=== PATIENT | female | born 1970 | race Two or more races ===

== ENCOUNTER → 2017-01-24 | Emergency (ER) | payer MEDICAID | END | disposition left against medical advice (07) | LOC: ER 23:28 | DX: R10.9 Unspecified abdominal pain (principal); Z53.21 Procedure and treatment not carried out due to patient leaving prior to being seen by health care provider ==

== ENCOUNTER 2018-08-24 02:06 | Emergency (ER) | payer MEDICAID ==
[~2018-08-24] VITALS: Ht 162.6 cm; Wt 56.7 kg
[2018-08-24 03:02] LABS: Basophils # (auto) 0.1 uL; Basophils % (auto) 0.5 % (0.0-2.0); Eosinophils # (auto) 0.2 uL; Eosinophils % (auto) 1.9 % (0.0-7.0); Hematocrit 34.7 % (36.0-46.0); Hemoglobin 11.5 g/dL (12.2-16.2); Lymphocytes # (auto) 2.5 uL; Lymphocytes % (auto) 26.7 % (10.0-50.0); Mean Corpuscular Hemoglobin 27.5 pg (28.0-32.0); Mean Corpuscular Hgb Conc. 33.2 g/dL (32.0-36.0); Monocytes # (auto) 0.5 uL; Monocytes % (auto) 5.5 % (0.0-12.0); Neutrophils # (auto) 6.2 uL; Neutrophils % (auto) 65.4 % (37.0-80.0); Platelet Count (auto) 388 10^3/uL (140-450); Red Blood Cells 4.18 10^6/uL (4.0-5.20); Red Cell Distribution Width 14.2 % (11.8-14.3); White Blood Cell 9.5 10^3/uL (4.4-10.8)
[2018-08-24 03:18] LABS: Albumin 3.3 g/dL (3.4-5.0); Calcium 8.6 mg/dL (8.5-10.1); Potassium 4.2 mmol/L (3.5-5.1)
[2018-08-24 03:27] LABS: Bilirubin, Total 0.3 mg/dL (0.2-1.0); Total Protein 7.5 g/dL (6.4-8.2)
[2018-08-24] MEDS ORDERED: HYDROcodone-ACET 5/325MG TAB PO ONE (05:00)
[2018-08-24] MEDS ORDERED: HYDROcodone-ACET 5/325MG TAB ONE (05:11)
[2018-08-24] MEDS ORDERED: SODIUM CHLORIDE 0.9% 1,000 ML IV ONE (06:15)
[2018-08-24] MEDS ORDERED: cefTRIAXone 1GM/50ML D5W 50 ML IV ONE (06:15)
[2018-08-24 07:35] VITALS: BP 121/66
== END 2018-08-24 07:51 | disposition home or self-care (01) ==
LOC: ER 02:11
DX: L60.0 Ingrowing nail (principal); E11.65 Type 2 diabetes mellitus with hyperglycemia; R42 Dizziness and giddiness; Z88.6 Allergy status to analgesic agent
CPT/HCPCS: 36415; 73660; 80053; 82010; 85025; 96365; 99284; J0696; J7030

== ENCOUNTER 2022-11-18 11:55 | Inpatient (IN) | payer MEDICAID ==
[~2022-11-18] VITALS: Ht 162.6 cm; Wt 77.4 kg
[2022-11-18] MEDS ORDERED: KETOROLAC TROMETH 60MG/2ML VIAL IM ONE (14:15)
[2022-11-18 15:10] LABS: Basophils # (auto) 0.1 10 ^3/uL (0-0.2); Monocytes # (auto) 0.9 10 ^3/uL (0-1.3)
[2022-11-18 15:13] LABS: Basophils % (auto) 0.7 % (0.0-2.0); Eosinophils # (auto) 0.2 10 ^3/uL (0-0.8); Eosinophils % (auto) 1.2 % (0.0-7.0); Hematocrit 17.9 % (36.0-46.0); Lymphocytes # (auto) 1.7 10 ^3/uL (0.4-5.4); Lymphocytes % (auto) 13.3 % (10.0-50.0); Mean Corpuscular Hemoglobin 22.7 pg (28.0-32.0); Mean Corpuscular Hgb Conc. 31.4 g/dL (32.0-36.0); Mean Corpuscular Volume 72.3 fL (80.0-100.0); Monocytes % (auto) 6.9 % (0.0-12.0); Neutrophils # (auto) 10.2 10 ^3/uL (1.6-8.6); Neutrophils % (auto) 77.9 % (37.0-80.0); Red Blood Cells 2.48 10^6/uL (4.0-5.20); Red Cell Distribution Width 16.2 % (11.8-14.3); White Blood Cell 13.1 10^3/uL (4.4-10.8)
[2022-11-18 15:29] LABS: Calcium 8.5 mg/dL (8.5-10.1); Potassium 4.1 mmol/L (3.5-5.1)
[2022-11-18 15:30] LABS: Hemoglobin 5.6 g/dL (12.2-16.2)
[2022-11-18 15:32] LABS: Albumin 2.8 g/dL (3.4-5.0); BUN/Creatinine Ratio 20.7
[2022-11-18 15:35] LABS: Bilirubin, Total 0.4 mg/dL (0.2-1.0)
[2022-11-18 16:39] LABS: INR 0.97 (0.9-1.15)
[2022-11-18 16:43] LABS: Basophils # (auto) 0.1 10 ^3/uL (0-0.2); Basophils % (auto) 0.9 % (0.0-2.0); Eosinophils # (auto) 0.2 10 ^3/uL (0-0.8); Neutrophils # (auto) 9.4 10 ^3/uL (1.6-8.6); Neutrophils % (auto) 74.8 % (37.0-80.0)
[2022-11-18 16:47] LABS: Eosinophils % (auto) 1.2 % (0.0-7.0); Hematocrit 17.5 % (36.0-46.0); Lymphocytes # (auto) 1.8 10 ^3/uL (0.4-5.4); Lymphocytes % (auto) 14.4 % (10.0-50.0); Mean Corpuscular Hgb Conc. 31.8 g/dL (32.0-36.0); Mean Corpuscular Volume 72.3 fL (80.0-100.0); Monocytes # (auto) 1.1 10 ^3/uL (0-1.3); Monocytes % (auto) 8.7 % (0.0-12.0); Red Blood Cells 2.42 10^6/uL (4.0-5.20); Red Cell Distribution Width 16.2 % (11.8-14.3); White Blood Cell 12.5 10^3/uL (4.4-10.8)
[2022-11-18 16:59] LABS: Hemoglobin 5.6 g/dL (12.2-16.2)
[2022-11-18 17:00] LABS: % Iron Saturation 2.4 % (15-50)
[2022-11-18] MEDS ORDERED: DEXTROSE (50%) 50ML SYRG IV PRN (17:30)
[2022-11-18] MEDS ORDERED: PANTOPRAZOLE 40 MG/10 ML VIAL INJ IV ONE (17:45)
[2022-11-18] MEDS ORDERED: CLINDAMYCIN 600MG IV 50 ML IV ONE (17:45)
[2022-11-18] MEDS: CLINDAMYCIN 600MG IV 50 ML IV SCH (17:58)
[2022-11-18 18:25] LABS: Folate (Folic Acid) 23.45 ng/mL (5.38-24)
[2022-11-19] VITALS (15 sets, daily range): BP systolic 99–175; BP diastolic 68–96
[2022-11-19] MEDS: ASCORBIC ACID 500 MG TAB PO SCH ×3 (01:17→22:52)
[2022-11-19] MEDS: SODIUM CHLORIDE 0.9% 1,000 ML IV SCH ×5 (01:20→18:02)
[2022-11-19] MEDS: InsuLIN REG 1unit/0.01ml Soln (100units/ml) SC SCH ×5 (01:39→22:52)
[2022-11-19] MEDS: ACCU-CHEK COMFORT CURVE STRIP VI SCH ×5 (01:40→22:00)
[2022-11-19] MEDS: CLINDAMYCIN 600MG IV 50 ML IV SCH ×2 (01:58→10:26)
[2022-11-19] MEDS: ACETAMINOPHEN 325 MG TAB PO PRN ×2 (06:25→08:27)
[2022-11-19] MEDS ORDERED: ENOXAPARIN SOD 40 MG/0.4 ML SYRINGE SC SCH (10:00)
[2022-11-19] MEDS: ZINC SULFATE 220mg CAP or TAB PO SCH (10:26)
[2022-11-19] MEDS: PANTOPRAZOLE 40 MG/10 ML VIAL INJ IV SCH (10:26)
[2022-11-19] MEDS: MULTIPLE VITAMIN TAB PO SCH (10:26)
[2022-11-19] MEDS ORDERED: VANCOMYCIN PER PHARMACY 0 MG IV SCH (11:30)
[2022-11-19] MEDS ORDERED: cefTRIAXone 1GM/50ML D5W 50 ML IV ONE (11:30)
[2022-11-19] MEDS ORDERED: VANCOMYCIN 1GM/250ML 250 ML IV ONE (11:30)
[2022-11-19 12:09] LABS: Basophils # (auto) 0.1 10 ^3/uL (0-0.2); Basophils % (auto) 0.9 % (0.0-2.0); Eosinophils # (auto) 0.2 10 ^3/uL (0-0.8); Nucleated Red Blood Cells % 0.1 %; White Blood Cell 10.6 10^3/uL (4.4-10.8)
[2022-11-19 12:11] LABS: Eosinophils % (auto) 2.3 % (0.0-7.0); Mean Corpuscular Hemoglobin 24.5 pg (28.0-32.0); Mean Corpuscular Volume 74.1 fL (80.0-100.0); Monocytes # (auto) 0.9 10 ^3/uL (0-1.3); Monocytes % (auto) 8.6 % (0.0-12.0); Neutrophils # (auto) 7.3 10 ^3/uL (1.6-8.6); Neutrophils % (auto) 69.2 % (37.0-80.0); Red Blood Cells 2.57 10^6/uL (4.0-5.20); Red Cell Distribution Width 16.9 % (11.8-14.3)
[2022-11-19 12:28] LABS: Albumin 2.3 g/dL (3.4-5.0); Calcium 7.8 mg/dL (8.5-10.1); Potassium 4.5 mmol/L (3.5-5.1)
[2022-11-19 12:31] LABS: BUN/Creatinine Ratio 27.2; Bilirubin, Total 0.4 mg/dL (0.2-1.0); Total Protein 6.3 g/dL (6.4-8.2)
[2022-11-19 12:35] LABS: Hemoglobin 6.3 g/dL (12.2-16.2)
[2022-11-19 19:10] LABS: Urine Bacteria NONE SEEN /hpf (None Seen); Urine Blood Negative /uL (Negative); Urine Specific Gravity 1.008 (1.001-1.035); Urine WBC 9 /hpf (0 - 5)
[2022-11-19 19:30] LABS: Protein, Urine 178.5 mg/dL (0.0-11.9)
[2022-11-19] MEDS: hydrALAZINE HCL 20 MG/ML VL IV PRN (23:30)
[2022-11-20] VITALS (7 sets, daily range): BP systolic 127–187; BP diastolic 68–103
[2022-11-20] MEDS: ACETAMINOPHEN 325 MG TAB PO PRN ×3 (05:28→22:24)
[2022-11-20] MEDS: hydrALAZINE HCL 20 MG/ML VL IV PRN ×2 (05:29→17:07)
[2022-11-20] MEDS: InsuLIN REG 1unit/0.01ml Soln (100units/ml) SC SCH ×4 (06:45→22:33)
[2022-11-20] MEDS: ACCU-CHEK COMFORT CURVE STRIP VI SCH ×4 (06:45→22:16)
[2022-11-20 07:58] LABS: Eosinophils # (auto) 0.1 10 ^3/uL (0-0.8); Hemoglobin 8.4 g/dL (12.2-16.2)
[2022-11-20 08:00] LABS: Basophils # (auto) 0.2 10 ^3/uL (0-0.2); Basophils % (auto) 1.4 % (0.0-2.0); Hematocrit 25.7 % (36.0-46.0); Lymphocytes # (auto) 1.6 10 ^3/uL (0.4-5.4); Lymphocytes % (auto) 10.9 % (10.0-50.0); Mean Corpuscular Hemoglobin 24.6 pg (28.0-32.0); Mean Corpuscular Hgb Conc. 32.5 g/dL (32.0-36.0); Mean Corpuscular Volume 75.6 fL (80.0-100.0); Monocytes # (auto) 0.9 10 ^3/uL (0-1.3); Monocytes % (auto) 6.3 % (0.0-12.0); Neutrophils # (auto) 11.6 10 ^3/uL (1.6-8.6); Neutrophils % (auto) 80.4 % (37.0-80.0); Nucleated Red Blood Cells % 0.2 %; Red Blood Cells 3.41 10^6/uL (4.0-5.20); Red Cell Distribution Width 17.7 % (11.8-14.3); White Blood Cell 14.4 10^3/uL (4.4-10.8)
[2022-11-20 08:18] LABS: Albumin 2.6 g/dL (3.4-5.0); Calcium 8.1 mg/dL (8.5-10.1); Magnesium 2.3 mg/dL (1.6-2.6); Potassium 4.7 mmol/L (3.5-5.1)
[2022-11-20 08:20] LABS: Bilirubin, Total 0.6 mg/dL (0.2-1.0); Total Protein 6.8 g/dL (6.4-8.2)
[2022-11-20] MEDS: VANCOMYCIN 750mg/250ml 250 ML IV SCH (08:45)
[2022-11-20] MEDS: cefTRIAXone 1GM/50ML D5W 50 ML IV SCH (08:46)
[2022-11-20] MEDS: PANTOPRAZOLE 40 MG/10 ML VIAL INJ IV SCH (11:07)
[2022-11-20] MEDS: ZINC SULFATE 220mg CAP or TAB PO SCH (11:07)
[2022-11-20] MEDS: ASCORBIC ACID 500 MG TAB PO SCH ×2 (11:08→22:14)
[2022-11-20] MEDS: MULTIPLE VITAMIN TAB PO SCH (11:20)
[2022-11-20] MEDS ORDERED: SODIUM FERR GLUC 62.5MG/5ML 125 MG in SODIUM CHL 0.9% 100 ML IV ONE (20:15)
[2022-11-20] MEDS: MUPIROCIN 2% OINT 15gm or 22gm FOR MRSA NARES EACHNOSTRI SCH (22:14)
[2022-11-20] MEDS: SODIUM CHLORIDE 0.9% 1,000 ML IV SCH (22:50)
[2022-11-21] MEDS: VANCOMYCIN 750mg/250ml 250 ML IV SCH ×2 (03:09→22:53)
[2022-11-21 05:00] VITALS: BP 147/85
[2022-11-21] MEDS: ACCU-CHEK COMFORT CURVE STRIP VI SCH ×4 (05:49→22:16)
[2022-11-21] MEDS: InsuLIN REG 1unit/0.01ml Soln (100units/ml) SC SCH ×4 (05:52→22:17)
[2022-11-21 06:25] LABS: Basophils # (auto) 0.1 10 ^3/uL (0-0.2); Basophils % (auto) 0.5 % (0.0-2.0); Eosinophils # (auto) 0.3 10 ^3/uL (0-0.8); Eosinophils % (auto) 2.5 % (0.0-7.0); Hematocrit 22.8 % (36.0-46.0); Hemoglobin 7.7 g/dL (12.2-16.2); Lymphocytes # (auto) 1.6 10 ^3/uL (0.4-5.4); Lymphocytes % (auto) 13.6 % (10.0-50.0); Mean Corpuscular Hemoglobin 25.4 pg (28.0-32.0); Mean Corpuscular Hgb Conc. 33.6 g/dL (32.0-36.0); Mean Corpuscular Volume 75.7 fL (80.0-100.0); Monocytes # (auto) 1.3 10 ^3/uL (0-1.3); Monocytes % (auto) 10.6 % (0.0-12.0); Neutrophils # (auto) 8.6 10 ^3/uL (1.6-8.6); Neutrophils % (auto) 72.8 % (37.0-80.0); Red Blood Cells 3.02 10^6/uL (4.0-5.20); White Blood Cell 11.8 10^3/uL (4.4-10.8)
[2022-11-21 06:33] LABS: BUN/Creatinine Ratio 24.5; Calcium 8.2 mg/dL (8.5-10.1); Magnesium 2.2 mg/dL (1.6-2.6); Potassium 4.8 mmol/L (3.5-5.1)
[2022-11-21 08:00] VITALS: BP 136/77
[2022-11-21 09:00] VITALS: BP_SYST 136; BP_SYST 92; BP_DIAS 57; BP_DIAS 77
[2022-11-21] MEDS: ZINC SULFATE 220mg CAP or TAB PO SCH (10:08)
[2022-11-21] MEDS: ACETAMINOPHEN 325 MG TAB PO PRN ×2 (10:08→23:05)
[2022-11-21] MEDS: cefTRIAXone 1GM/50ML D5W 50 ML IV SCH (10:09)
[2022-11-21] MEDS: MUPIROCIN 2% OINT 15gm or 22gm FOR MRSA NARES EACHNOSTRI SCH ×2 (10:09→22:15)
[2022-11-21] MEDS: MULTIPLE VITAMIN TAB PO SCH (10:09)
[2022-11-21] MEDS: ASCORBIC ACID 500 MG TAB PO SCH ×2 (10:09→22:16)
[2022-11-21] MEDS: PANTOPRAZOLE 40 MG/10 ML VIAL INJ IV SCH (10:18)
[2022-11-21] MEDS ORDERED: SODIUM FERR GLUC 62.5MG/5ML 125 MG in SODIUM CHL 0.9% 100 ML IV ONE (12:00)
[2022-11-21 13:00] VITALS: BP 157/82
[2022-11-21] MEDS: PIPERACILLIN-TAZOB 3.375GM 100 ML IV SCH ×2 (13:26→18:56)
[2022-11-21] MEDS: ENALAPRIL MALEATE 2.5 MG TAB PO SCH (16:18)
[2022-11-21 17:00] VITALS: BP 154/67
[2022-11-21 22:00] VITALS: BP 182/89
[2022-11-22] MEDS: PIPERACILLIN-TAZOB 3.375GM 100 ML IV SCH ×4 (00:02→18:42)
[2022-11-22 05:00] VITALS: BP 117/72
[2022-11-22 06:03] LABS: Hemoglobin 7.4 g/dL (12.2-16.2); White Blood Cell 9.9 10^3/uL (4.4-10.8)
[2022-11-22 06:07] LABS: Basophils # (auto) 0.1 10 ^3/uL (0-0.2); Basophils % (auto) 0.8 % (0.0-2.0); Eosinophils # (auto) 0.3 10 ^3/uL (0-0.8); Eosinophils % (auto) 3.2 % (0.0-7.0); Hematocrit 22.2 % (36.0-46.0); Lymphocytes # (auto) 1.1 10 ^3/uL (0.4-5.4); Lymphocytes % (auto) 11.5 % (10.0-50.0); Mean Corpuscular Hemoglobin 25.4 pg (28.0-32.0); Mean Corpuscular Hgb Conc. 33.3 g/dL (32.0-36.0); Mean Corpuscular Volume 76.1 fL (80.0-100.0); Monocytes % (auto) 9.8 % (0.0-12.0); Neutrophils # (auto) 7.4 10 ^3/uL (1.6-8.6); Neutrophils % (auto) 74.7 % (37.0-80.0); Red Blood Cells 2.92 10^6/uL (4.0-5.20); Red Cell Distribution Width 17.8 % (11.8-14.3)
[2022-11-22 06:21] LABS: Potassium 4.4 mmol/L (3.5-5.1)
[2022-11-22 06:27] LABS: Albumin 2.1 g/dL (3.4-5.0); BUN/Creatinine Ratio 25.2; Bilirubin, Total 0.2 mg/dL (0.2-1.0); Calcium 7.8 mg/dL (8.5-10.1); Magnesium 2.2 mg/dL (1.6-2.6); Total Protein 6.6 g/dL (6.4-8.2)
[2022-11-22] MEDS: LEVOTHYROXINE SODIUM 50 MCG TAB PO SCH (06:33)
[2022-11-22] MEDS: ACCU-CHEK COMFORT CURVE STRIP VI SCH ×4 (06:34→22:31)
[2022-11-22] MEDS: InsuLIN REG 1unit/0.01ml Soln (100units/ml) SC SCH ×4 (06:34→22:31)
[2022-11-22 08:00] VITALS: BP 141/73
[2022-11-22 09:00] VITALS: BP 141/73
[2022-11-22] MEDS: PANTOPRAZOLE 40 MG/10 ML VIAL INJ IV SCH (09:42)
[2022-11-22] MEDS: ACETAMINOPHEN 325 MG TAB PO PRN ×2 (09:42→20:36)
[2022-11-22] MEDS: ASCORBIC ACID 500 MG TAB PO SCH ×2 (09:43→22:32)
[2022-11-22] MEDS: ZINC SULFATE 220mg CAP or TAB PO SCH (09:43)
[2022-11-22] MEDS: MULTIPLE VITAMIN TAB PO SCH (09:43)
[2022-11-22] MEDS: ENALAPRIL MALEATE 2.5 MG TAB PO SCH (09:43)
[2022-11-22] MEDS: MUPIROCIN 2% OINT 15gm or 22gm FOR MRSA NARES EACHNOSTRI SCH ×2 (09:44→22:32)
[2022-11-22 13:00] VITALS: BP 156/83
[2022-11-22] MEDS: hydrALAZINE HCL 20 MG/ML VL IV PRN (13:28)
[2022-11-22] MEDS: VANCOMYCIN 750mg/250ml 250 ML IV SCH (15:11)
[2022-11-22 16:55] VITALS: BP 153/76
[2022-11-22 22:00] VITALS: BP 159/80
[2022-11-23] MEDS: PIPERACILLIN-TAZOB 3.375GM 100 ML IV SCH ×2 (00:51→06:10)
[2022-11-23 05:00] VITALS: BP 155/71
[2022-11-23] MEDS: hydrALAZINE HCL 20 MG/ML VL IV PRN ×2 (06:10→21:44)
[2022-11-23] MEDS: ACETAMINOPHEN 325 MG TAB PO PRN ×2 (06:11→18:30)
[2022-11-23 06:44] LABS: BUN/Creatinine Ratio 22.4; Calcium 8.2 mg/dL (8.5-10.1)
[2022-11-23] MEDS: ACCU-CHEK COMFORT CURVE STRIP VI SCH ×4 (06:47→21:42)
[2022-11-23] MEDS: LEVOTHYROXINE SODIUM 50 MCG TAB PO SCH (06:47)
[2022-11-23] MEDS: InsuLIN REG 1unit/0.01ml Soln (100units/ml) SC SCH ×4 (06:48→21:42)
[2022-11-23 06:50] LABS: Basophils # (auto) 0.1 10 ^3/uL (0-0.2); Red Blood Cells 3.04 10^6/uL (4.0-5.20)
[2022-11-23 06:53] LABS: Basophils % (auto) 1.3 % (0.0-2.0); Eosinophils # (auto) 0.4 10 ^3/uL (0-0.8); Eosinophils % (auto) 4.1 % (0.0-7.0); Hematocrit 23.2 % (36.0-46.0); Hemoglobin 7.7 g/dL (12.2-16.2); Lymphocytes # (auto) 1.6 10 ^3/uL (0.4-5.4); Lymphocytes % (auto) 17.9 % (10.0-50.0); Mean Corpuscular Hemoglobin 25.3 pg (28.0-32.0); Mean Corpuscular Hgb Conc. 33.1 g/dL (32.0-36.0); Mean Corpuscular Volume 76.4 fL (80.0-100.0); Monocytes # (auto) 0.7 10 ^3/uL (0-1.3); Monocytes % (auto) 7.5 % (0.0-12.0); Neutrophils # (auto) 6.2 10 ^3/uL (1.6-8.6); Neutrophils % (auto) 69.2 % (37.0-80.0); Red Cell Distribution Width 18.1 % (11.8-14.3)
[2022-11-23 09:00] VITALS: BP 106/62
[2022-11-23] MEDS: VANCOMYCIN 750mg/250ml 250 ML IV SCH (09:00)
[2022-11-23] MEDS: ENALAPRIL MALEATE 2.5 MG TAB PO SCH (10:00)
[2022-11-23] MEDS: PANTOPRAZOLE 40 MG/10 ML VIAL INJ IV SCH (10:28)
[2022-11-23] MEDS: ZINC SULFATE 220mg CAP or TAB PO SCH (10:28)
[2022-11-23] MEDS: ASCORBIC ACID 500 MG TAB PO SCH ×2 (10:28→21:42)
[2022-11-23] MEDS: MUPIROCIN 2% OINT 15gm or 22gm FOR MRSA NARES EACHNOSTRI SCH ×2 (10:28→21:41)
[2022-11-23] MEDS: MULTIPLE VITAMIN TAB PO SCH (10:28)
[2022-11-23] MEDS: diphenhdrAMINE HCL 25 MG CAP PO PRN ×2 (10:38→21:44)
[2022-11-23 13:00] VITALS: BP 143/67
[2022-11-23] MEDS ORDERED: VANCOMYCIN 750mg/250ml 250 ML IV SCH (13:00)
[2022-11-23] MEDS: SODIUM CHLORIDE 0.9% 1,000 ML IV SCH ×2 (14:00→21:41)
[2022-11-23] MEDS ORDERED: PIPERACILLIN-TAZOB 3.375GM 100 ML IV SCH (14:00)
[2022-11-23 16:42] VITALS: BP 147/84
[2022-11-23 20:00] VITALS: BP 175/84
[2022-11-23] MEDS: MEROPENEM 1GM IVPB 100 ML IV SCH (21:42)
[2022-11-23 22:00] VITALS: BP 175/84
[2022-11-24 05:00] VITALS: BP 147/89
[2022-11-24 06:41] LABS: Basophils # (auto) 0.1 10 ^3/uL (0-0.2); Basophils % (auto) 0.9 % (0.0-2.0); Eosinophils # (auto) 0.3 10 ^3/uL (0-0.8); Lymphocytes # (auto) 1.5 10 ^3/uL (0.4-5.4); Mean Corpuscular Volume 76.6 fL (80.0-100.0); Monocytes # (auto) 0.6 10 ^3/uL (0-1.3); Neutrophils % (auto) 69.5 % (37.0-80.0)
[2022-11-24 06:44] LABS: Eosinophils % (auto) 3.5 % (0.0-7.0); Hematocrit 22.2 % (36.0-46.0); Hemoglobin 7.3 g/dL (12.2-16.2); Lymphocytes % (auto) 18.5 % (10.0-50.0); Mean Corpuscular Hemoglobin 25.3 pg (28.0-32.0); Monocytes % (auto) 7.6 % (0.0-12.0); Neutrophils # (auto) 5.6 10 ^3/uL (1.6-8.6); Nucleated Red Blood Cells % 0.1 %; White Blood Cell 8.1 10^3/uL (4.4-10.8)
[2022-11-24] MEDS: SODIUM CHLORIDE 0.9% 1,000 ML IV SCH ×4 (06:45→12:24)
[2022-11-24] MEDS: ACCU-CHEK COMFORT CURVE STRIP VI SCH ×4 (06:45→22:58)
[2022-11-24] MEDS: LEVOTHYROXINE SODIUM 50 MCG TAB PO SCH (06:45)
[2022-11-24] MEDS: InsuLIN REG 1unit/0.01ml Soln (100units/ml) SC SCH ×4 (06:46→23:00)
[2022-11-24] MEDS: ACETAMINOPHEN 325 MG TAB PO PRN ×2 (06:49→23:03)
[2022-11-24 06:58] LABS: BUN/Creatinine Ratio 26.1; Calcium 7.9 mg/dL (8.5-10.1); Magnesium 2.3 mg/dL (1.6-2.6)
[2022-11-24 08:00] VITALS: BP 141/72
[2022-11-24] MEDS: ASCORBIC ACID 500 MG TAB PO SCH ×2 (11:26→22:58)
[2022-11-24] MEDS: MULTIPLE VITAMIN TAB PO SCH (11:26)
[2022-11-24] MEDS: ZINC SULFATE 220mg CAP or TAB PO SCH (11:26)
[2022-11-24] MEDS: PANTOPRAZOLE 40 MG/10 ML VIAL INJ IV SCH (11:27)
[2022-11-24] MEDS: MUPIROCIN 2% OINT 15gm or 22gm FOR MRSA NARES EACHNOSTRI SCH ×2 (11:28→22:58)
[2022-11-24] MEDS: MEROPENEM 1GM IVPB 100 ML IV SCH ×2 (11:28→23:06)
[2022-11-24] MEDS: hydrALAZINE HCL 20 MG/ML VL IV PRN (11:40)
[2022-11-24 12:00] VITALS: BP 162/80
[2022-11-24 16:00] VITALS: BP 150/73
[2022-11-24] MEDS: VANCOMYCIN 500 MG in D5W 5% 100 ML IV SCH (18:49)
[2022-11-24 22:00] VITALS: BP 174/94
[2022-11-25] MEDS: hydrALAZINE HCL 20 MG/ML VL IV PRN (01:14)
[2022-11-25 05:00] VITALS: BP 138/60
[2022-11-25] MEDS: InsuLIN REG 1unit/0.01ml Soln (100units/ml) SC SCH ×3 (06:31→17:47)
[2022-11-25] MEDS: ACCU-CHEK COMFORT CURVE STRIP VI SCH ×3 (06:31→17:44)
[2022-11-25] MEDS: LEVOTHYROXINE SODIUM 50 MCG TAB PO SCH (06:31)
[2022-11-25 06:45] LABS: Basophils # (auto) 0.1 10 ^3/uL (0-0.2); Hemoglobin 7.6 g/dL (12.2-16.2); Mean Corpuscular Volume 76.1 fL (80.0-100.0); Neutrophils # (auto) 4.8 10 ^3/uL (1.6-8.6)
[2022-11-25 06:50] LABS: Eosinophils # (auto) 0.3 10 ^3/uL (0-0.8); Eosinophils % (auto) 4.2 % (0.0-7.0); Lymphocytes # (auto) 1.8 10 ^3/uL (0.4-5.4); Lymphocytes % (auto) 23.7 % (10.0-50.0); Mean Corpuscular Hgb Conc. 32.9 g/dL (32.0-36.0); Monocytes # (auto) 0.6 10 ^3/uL (0-1.3); Monocytes % (auto) 8.1 % (0.0-12.0); Red Blood Cells 3.03 10^6/uL (4.0-5.20); Red Cell Distribution Width 18.7 % (11.8-14.3); White Blood Cell 7.7 10^3/uL (4.4-10.8)
[2022-11-25 07:18] LABS: BUN/Creatinine Ratio 30.8; Calcium 8.1 mg/dL (8.5-10.1); Potassium 4.7 mmol/L (3.5-5.1)
[2022-11-25 08:00] VITALS: BP 143/69
[2022-11-25 08:55] VITALS: BP 143/69
[2022-11-25] MEDS ORDERED: LEV50T PO (10:43)
[2022-11-25] MEDS ORDERED: AUG875T PO (10:44)
[2022-11-25] MEDS: MUPIROCIN 2% OINT 15gm or 22gm FOR MRSA NARES EACHNOSTRI SCH (10:56)
[2022-11-25] MEDS: VANCOMYCIN 500 MG in D5W 5% 100 ML IV SCH (10:56)
[2022-11-25] MEDS: PANTOPRAZOLE 40 MG/10 ML VIAL INJ IV SCH (10:57)
[2022-11-25] MEDS: ZINC SULFATE 220mg CAP or TAB PO SCH (10:57)
[2022-11-25] MEDS: MULTIPLE VITAMIN TAB PO SCH (10:57)
[2022-11-25] MEDS: ASCORBIC ACID 500 MG TAB PO SCH (10:58)
[2022-11-25] MEDS: MEROPENEM 1GM IVPB 100 ML IV SCH (13:21)
[2022-11-25] MEDS: SODIUM CHLORIDE 0.9% 1,000 ML IV SCH (14:26)
[2022-11-25 18:12] VITALS: BP 143/69
[2022-11-25] MEDS ORDERED: MEROPENEM 1GM IVPB 100 ML IV SCH (22:00)
== END 2022-11-25 21:27 | disposition home or self-care (01) | DRG 383 ==
LOC: ER 11:55 → OVERFLOW 17:31 → WEST WING 21:44
PROVIDERS: ADMIT Nurse Practitioner Family; ATTEND Internal Medicine Geriatric Medicine
PROC: 30233N1 Transfusion of Nonautologous Red Blood Cells into Peripheral Vein, Percutaneous Approach (ICD-10-PCS; principal; 2022-11-19)
DX: L03.213 Periorbital cellulitis (principal); N17.9 Acute kidney failure, unspecified; E44.0 Moderate protein-calorie malnutrition; D62 Acute posthemorrhagic anemia; E87.1 Hypo-osmolality and hyponatremia; L03.211 Cellulitis of face; L02.01 Cutaneous abscess of face; E11.22 Type 2 diabetes mellitus with diabetic chronic kidney disease; D50.9 Iron deficiency anemia, unspecified; E03.9 Hypothyroidism, unspecified; B95.62 Methicillin resistant Staphylococcus aureus infection as the cause of diseases classified elsewhere; Z20.822 Contact with and (suspected) exposure to COVID-19; E11.65 Type 2 diabetes mellitus with hyperglycemia; W57.XXXA Bitten or stung by nonvenomous insect and other nonvenomous arthropods, initial encounter; N92.1 Excessive and frequent menstruation with irregular cycle; I12.9 Hypertensive chronic kidney disease with stage 1 through stage 4 chronic kidney disease, or unspecified chronic kidney disease; N18.9 Chronic kidney disease, unspecified; N92.0 Excessive and frequent menstruation with regular cycle; Z88.5 Allergy status to narcotic agent; Z78.9 Other specified health status; Z83.3 Family history of diabetes mellitus; Z90.49 Acquired absence of other specified parts of digestive tract; Z68.28 Body mass index [BMI] 28.0-28.9, adult; Y93.89 Activity, other specified; Y92.89 Other specified places as the place of occurrence of the external cause; Y99.8 Other external cause status; L02.222 Furuncle of back [any part, except buttock and flank]
CPT/HCPCS: 36415; 70480; 71046; 76700; 76856; 80048; 80053; 80202; 81001; 82270; 82570; 82607; 82670; 82728; 82746; 82962; 83001; 83002; 83036; 83540; 83550; 83605; 83735; 84156; 84300; 84443; 84550; 85025; 85610; 85652; 86141; 86850; 86900; 86901; 86920; 87040; 87081; 87086; 87426; 87493; 96372; 96374; 97110; 97116; 97163; 97530; C9113; G0378; J0696; J1815; J1885; J2185; J2543; J3490; J7060